=== PATIENT | male | born 1955 | race Asian ===

== ENCOUNTER 2017-08-19 11:33 | Emergency (ER) | payer OTHER ==
[~2017-08-19] VITALS: Ht 170.2 cm; Wt 68.2 kg
[2017-08-19 13:01] LABS: INFLUENZA TYPE B NEGATIVE FOR TYPE B (NEGATIVE)
[2017-08-19 13:02] LABS: INFLUENZA TYPE A POSITIVE FOR TYPE A (NEGATIVE)
[2017-08-19 14:19] VITALS: BP 128/77
== END 2017-08-19 14:25 | disposition home or self-care (01) ==
LOC: EMS 11:36
DX: J09.X2 Influenza due to identified novel influenza A virus with other respiratory manifestations (principal); R03.0 Elevated blood-pressure reading, without diagnosis of hypertension
CPT/HCPCS: 87804; 99284

== ENCOUNTER 2018-11-11 10:40 | Emergency (ER) | payer OTHER ==
[~2018-11-11] VITALS: Ht 170.2 cm; Wt 68.2 kg
[2018-11-11] MEDS ORDERED: PredniSONE 20 MG TABLET PO ONE (12:00)
[2018-11-11] MEDS ORDERED: CETIRIZINE HCL 10 MG TABLET PO ONE (12:00)
[2018-11-11 12:25] VITALS: BP 131/76
== END 2018-11-11 12:32 | disposition home or self-care (01) ==
LOC: EMS 10:41
DX: R21 Rash and other nonspecific skin eruption (principal); L98.9 Disorder of the skin and subcutaneous tissue, unspecified
CPT/HCPCS: 99283; J7512

== ENCOUNTER 2019-08-19 13:45 | Emergency (ER) | payer OTHER ==
[~2019-08-19] VITALS: Ht 167.6 cm; Wt 6.6 kg
[2019-08-19] MEDS: MUPIROCIN CALCIUM 2% 22 GM OINTMENT TP ONE (16:32)
[2019-08-19] MEDS: DOXYCYCLINE HYCLATE 100 MG CAPSULE PO ONE (16:32)
[2019-08-19 16:35] VITALS: BP 121/77
== END 2019-08-19 16:46 | disposition home or self-care (01) ==
LOC: EMS 13:46
DX: L08.9 Local infection of the skin and subcutaneous tissue, unspecified (principal); M79.644 Pain in right finger(s)